=== PATIENT | male | born 1990 | race Hispanic/Latino ===

== ENCOUNTER 2022-06-04 08:13 | Day surgery (SDC) | payer BC ==
[2022-06-04] MEDS ORDERED: CEFAZOLIN SODIUM 2 GM/VIAL ONE (08:35)
[2022-06-04] MEDS ORDERED: Ringers Lactate 1,000 ML IV ONE (08:35)
[2022-06-04] MEDS ORDERED: BUPIVACAINE 0.25% PF 10 ML VIAL ONE (10:52)
[2022-06-04] MEDS ORDERED: CELECOXIB 100 MG CAPSULE ONE (10:54)
[2022-06-04] MEDS ORDERED: ACETAMINOPHEN 500 MG TAB ONE (10:54)
[2022-06-04] MEDS ORDERED: MIDAZOLAM HCL 2 MG/2 ML INJ ONE (11:13)
[2022-06-04] MEDS ORDERED: propofoL 200 MG/20 ML VIAL IV ONE (11:13)
[2022-06-04] MEDS ORDERED: FENTANYL CITR 100 MCG/2 ML ONE (11:13)
[2022-06-04] MEDS ORDERED: LIDOCAINE 1% MPF 2 ML AMPULE ONE (11:22)
--- NOTE | 2022-06-04 11:54 | P.OP ---
Preoperative diagnosis: Central upper back sebaceous cyst Postoperative diagnosis: Central upper back sebaceous cyst Primary procedure: Wide local excision of Central upper back sebaceous cyst Anesthesia: GETA + Local Estimated blood loss: <5cc Specimen: Central upper back sebaceous cyst Findings: 4cm x 3cm up to fascia over muscle Complications: None Transferred to: Recovery Room Condition: Good
[2022-06-04 13:40] VITALS: BP 124/82; TEMP 96; O2SAT 100
--- NOTE | 2022-06-04 17:30 | EKG ---
Test Date: 2022-06-04 Test Time: 08:08:47 [employer] Expander: ARIADNA MEASUREMENT RESULTS: Intervals: Rate: 69 AK: 148 QRSD: 102 QT: 372 QTc: 398 [place]: P: 50 AK: 148 QRS: 40 T: 57 INTERPRETIVE STATEMENTS: Normal sinus rhythm Normal ECG No previous ECG available for comparison Electronically Signed On 06-04-22 17:29:53 SNOWMAKER by Isaías Ervin
--- NOTE | 2022-06-04 19:24 | OP ---
Date of Procedure: 06/04/2022 Surgeon: Timothy Triana MD, Preoperative Diagnosis: Central upper back sebaceous cyst. Postoperative Diagnosis: Central upper back sebaceous cyst. Procedure Performed: Wide local excision of central upper back sebaceous cyst. Anesthesia: General endotracheal plus local with 0.25% Marcaine. Estimated Blood Loss: Less than 5 cc. Specimen: Central upper back sebaceous cyst. Findings: 4 cm x 3 cm sebaceous cyst extending to the fascia overlying the muscle, but not involving the muscle. Complications: None. The patient was transferred to recovery room in good condition. Procedure In Detail: After informed consent was obtained, the patient was brought to the operating r oom and prepped and draped in the usual sterile fashion. After adequate anesthesia was achieved, an elliptical incision was made after circumferentially anesthetizing the skin overlying the central upp er back portion where a sebaceous cyst was noted. An elliptical incision was made with a 15 blade do wn to subcutaneous tissues. Electrocautery was used to dissect out an enlarged sebaceous cyst. This was sent off for pathologic examination after completely encircling the area. Sebaceous material wa s noted on the back table. The area was copiously irrigated and packed with Vashe-soaked Kerlix and a sterile dressing placed over top. The patient tolerated the procedure well without evidence of any complication and transferred to PACU in good condition. All counts were correct at the end of the ca se. TK/MODL Voice ID: [id number] Report ID: [id number]
== END 2022-06-04 13:30 | disposition home or self-care (01) ==
LOC: OR 08:13
PROVIDERS: ATTEND Surgery
PROC: 0JB70ZZ Excision of Back Subcutaneous Tissue and Fascia, Open Approach (ICD-10-PCS; principal; 2022-06-04 10:00)
DX: L72.0 Epidermal cyst (principal)
CPT/HCPCS: 93005; 88304; 11404; J2704; J2250; J3010; J7120